=== PATIENT | male | born 1980 | race Two or more races ===

== ENCOUNTER 2017-05-08 12:11 | Emergency (ER) | payer SELFPAY ==
--- NOTE | 2017-05-08 12:43 | ED Physician Chart ---
ED Chief Complaint/HPI - Patient Information Date Seen:: 05/08/17 Time Seen:: 12:39 Chief Complaint:: Cough and chest pain History of Present Illness:: 36 yo male had cough, sore throat and chest pain for 1 week. Patient also had painful ulcer on the tongue for 1 week. Patient had HIV and HBV for 3 years and currently on antiviral treatments (Truvada and Prezcobix). Allergies:: Allergies Allergy/AdvReac Type Severity Reaction Status Date / Time aspirin Allergy Verified 05/08/17 12:29 Vitals:: Vital Signs - 8 hr 05/08/17 12:23 Temp 98.2 F HR 80 RR 22 BP 136/80 O2 Sat % 96 ED Review of Systems - Review of Systems General/Constitutional: No fever Skin: Skin lesions (bilateral fingers ) Head: No headache Eyes: No pain ENT: Other (tongue pain) Neck: No neck pain Cardio Vascular: No chest pain Pulmonary: No SOB, Cough GI: No nausea, No vomiting Musculoskeletal: No bone or joint pain ED Past Medical History - Past Medical History Past Medical History: Other (HIV, HBV) Social History: Smoker, No Alcohol, No Drug Use Surgical History: None Family Medical History - Family Member Mother History Unknown: Yes Ethnicity: Living Status: Still Living ED Physical Exam - Physical Examination General/Constitutional: Awake, Alert Head: Atraumatic Eyes: PERRL Other ENMT comments:: Small ulcer with white surroundings on mid of the tongue Neck: No nuchal rigidity Respiratory: Nl effort/Exclusion Cardio Vascular: RRR, No murmur, gallop, rubs, NL S1 S2 GI: No tenderness/rebounding/guarding Extremities: No tenderness or effusion Neuro/Psych: Alert/oriented, No focal deficits ED Labs/Radiology/EKG Results - Radiology Results Results: CXR: no consolidation ED Assessment - Assessment General Assessment: Bronchitis Leukocytosis Tongue ulcer Eczema Assessment/Comments:: CBC, CMP CXR DuoNeb Azithromycin IV Rocephin IV NS 1L iv bolus D/c home Azithromycin 250mg qd x 6 days Chlorhexdine 0.12% oral Bid F/u PCP or return ER if symptoms worsen ED Septic Shock - . Is Septic Shock (SBP<90, OR Lactate>4 mmol\L) present?: No - <6hrs of presentation: Vital Signs: Vital Signs - 8 hr 05/08/17 12:23 Temp 98.2 F HR 80 RR 22 BP 136/80 O2 Sat % 96 ED Reassessment (Disposition) - Reassessment Reassessment Condition:: Improved - Patient Disposition Discharge/Transfer:: Home
[2017-05-08] MEDS ORDERED: Albuterol/Ipratropium Neb 3 ML AERS HHN ONE ×2 (12:52→13:01)
[2017-05-08 13:05] LABS: % BASOPHILS 0.2 % (0.0-2.0); % EOSINOPHILS 3.2 % (0.0-5.0); % MONOCYTES 6.5 % (2.0-10.0); % NEUTROPHILS 62.1 % (40.0-80.0); EOSINOPHILE ABSOLUTE 0.4 Th/cmm (0.1-0.4); HEMATOCRIT 45.6 % (41.0-60); HEMOGLOBIN 15.7 gm/dL (12-16); LYMPHOCYTE ABSOLUTE 3.3 Th/cmm (1.5-3.0); MEAN CELL VOLUME 90.1 fl (80-99); MEAN CORPUSCULAR HEMOGLOBIN 31.1 pg (26.0-30.0); MEAN CORPUSCULAR HGB CONC 34.5 pg (28.0-36.0); MEAN PLATELET VOLUME 7.4 fl; MONOCYTE ABSOLUTE 0.8 Th/cmm (0.3-1.0); NEUTROPHILE ABSOLUTE 7.2 Th/cmm (1.8-8.0); PLATELET COUNT 266 Th/cmm (150-400); RED BLOOD COUNT 5.06 Mil/cmm (4.30-5.70); RED CELL DISTRIBUTION WIDTH 12.5 % (11.5-20.0); WHITE BLOOD COUNT 11.7 Th/cmm (4.8-10.8)
[2017-05-08 13:22] LABS: ALB/GLOB RATIO 1.4 (1.0-1.8); ALKALINE PHOSPHATASE 92 U/L (34-104); ANION GAP 8.6 (7.0-16.0); BUN - UREA NITROGEN 20 mg/dL (7-25); CALCIUM SERUM 9.3 mg/dL (8.6-10.3); CARBON DIOXIDE 20.9 mEq/L (21.0-31.0); CHLORIDE 109 mEq/L (98-107); CREATININE - SERUM 0.5 mg/dL (0.7-1.3); GFR AFRICAN-AMERICAN > 60.0 ml/min (>90); GFR NON AFRICAN-AMERICAN > 60.0 ml/min; GLUCOSE 79 mg/dL (70-105); POTASSIUM SERUM 3.5 mEq/L (3.5-5.1); SGOT 19 U/L (13-39); SGPT/ALT 20 U/L (7-52); SODIUM SERUM 135 mEq/L (136-145); TOTAL PROTEIN,SERUM 6.8 gm/dL (6.0-8.3)
[2017-05-08] MEDS ORDERED: Azithromycin 500 MG in Sodium Chloride 0.9% 250 ML IV ONE (14:15)
[2017-05-08] MEDS ORDERED: Sodium Chloride 0.9% 1,000 ML IV ONE (14:15)
[2017-05-08] MEDS ORDERED: cefTRIAXone 1 GM in Sodium Chloride 0.9% 50 ML IV ONE (15:20)
--- NOTE | 2017-05-09 08:15 | Diagnostic Imaging Report ---
Portable chest x-ray History: Cough Allowing for portable technique the heart size is normal. No focal pulmonary parenchymal processes. No hilar or mediastinal abnormalities. Impression: No acute abnormalities.
== END 2017-05-08 16:40 | disposition home or self-care (01) ==
LOC: ER 12:11
DX: J40 Bronchitis, not specified as acute or chronic (principal); D72.829 Elevated white blood cell count, unspecified; L30.9 Dermatitis, unspecified; R07.9 Chest pain, unspecified; F17.200 Nicotine dependence, unspecified, uncomplicated
CPT/HCPCS: 99285; 96365; 96367; 94640; 71045; 36415; 85025; 80053; 87040 ×2; J0696; J0456; J7030